=== PATIENT | male | born 1980 | race Caucasian/White ===

== ENCOUNTER 2018-01-03 11:09 | Emergency (ER) | payer BC ==
[~2018-01-03] VITALS: Ht 175.3 cm; Wt 104.3 kg
[2018-01-03 12:35] LABS: AMPHETAMINES SCREEN,URINE NEGATIVE (NEGATIVE); BENZODIAZEPINES SCREEN,URINE NEGATIVE (NEGATIVE); PHENCYCLIDINE SCREEN,URINE NEGATIVE (NEGATIVE)
[2018-01-03] MEDS ORDERED: ASPIRIN 81 MG CHEW TAB PO ONE ×2 (12:45→14:45)
[2018-01-03 12:46] LABS: BILIRUBIN,URINE NEGATIVE (NEGATIVE); CLARITY,URINE CLEAR (CLEAR); COLOR,URINE YELLOW (YELLOW); KETONES,URINE TRACE (NEGATIVE); LEUKOCYTE ESTERASE ,URINE NEGATIVE (NEGATIVE); NITRITE,URINE NEGATIVE (NEGATIVE); PROTEIN,URINE DIPSTICK NEGATIVE (NEGATIVE); URINE UROBILINOGEN 0.2 mg/dL (0.2 - 1)
[2018-01-03 12:46] LABS: BASOPHILS # (AUTO) 0.1 (0.0-0.1); BASOPHILS % 0.6 % (0.0-1.0); EOSINOPHILS # (AUTO) 0.3 (0.0-0.4); EOSINOPHILS % 3.7 % (0.0-6.0); HEMATOCRIT 42.3 % (38.2-49.6); LYMPHOCYTES # (AUTO) 2.3 (1.0-3.2); LYMPHOCYTES % 29.1 % (18.0-39.1); MEAN CORPUSCULAR HEMOGLOBIN 32.3 pg (28-32); MEAN CORPUSCULAR HGB CONC 35.5 g/dL (31-35); MONOCYTES # (AUTO) 0.6 (0.2-0.8); MONOCYTES % 8.1 % (4.4-11.3); NEUTROPHILS # (AUTO) 4.5 (2.1-6.9); NEUTROPHILS % 57.9 % (38.7-80.0); PLATELET COUNT 262 x10e3/uL (140-360); RED BLOOD COUNT 4.65 x10e6/uL (4.3-5.7); RED CELL DISTRIBUTION WIDTH 12.6 % (11.7-14.4)
[2018-01-03 12:49] LABS: INR 1.01; PROTHROMBIN TIME 12.5 seconds (11.9-14.5)
[2018-01-03 12:50] LABS: PARTIAL THROMBOPLASTIN TIME 26.1 seconds (23.8-35.5)
[2018-01-03 12:57] LABS: BACTERIA,URINE RARE /HPF; WBC,URINE (MAN) 0-5 /HPF (0-5)
[2018-01-03 12:58] LABS: ALANINE AMINOTRANSFERASE 55 IU/L (0-55); ALBUMIN 4.7 g/dL (3.5-5.0); ALBUMIN/GLOBULIN RATIO 1.2 (0.8-2.0); ALKALINE PHOSPHATASE 81 IU/L (40-150); BLOOD UREA NITROGEN 11 mg/dL (7-26); BUN/CREATININE RATIO 11 (6-25); CALCIUM 9.8 mg/dL (8.4-10.2); CARBON DIOXIDE 23 mmol/L (22-29); CHLORIDE 104 mmol/L (98-107); CREATINE KINASE 162 IU/L (30-200); CREATININE, SERUM 0.99 mg/dL (0.72-1.25); EST GLOMERULAR FILTRATION RATE > 60 ML/MIN (60-); GLUCOSE 129 mg/dL (74-118); LIPASE 74 U/L (8-78); SODIUM 140 mmol/L (136-145)
--- NOTE | 2018-01-03 13:24 | Diagnostic Imaging Report ---
PROCEDURE: A single AP view of the chest. COMPARISON: None. INDICATIONS: CHEST PAIN TODAY FINDINGS: Lines/tubes: None. Lungs: The lungs are well inflated and clear. There is no evidence of pneumonia or pulmonary edema. Pleura: There is no pleural effusion or pneumothorax. Heart and mediastinum: The heart and the mediastinum are unremarkable. Bones: No acute bony abnormality. IMPRESSION: No acute cardiopulmonary disease. Dictated by: Timo Echols M.D. on 01/03/2018 at 13:27 Electronically approved by: Timo Echols M.D. on 01/03/2018 at 13:27
[2018-01-03] MEDS ORDERED: NITROGLYCERIN 0.4 MG SUBL SL PRN (14:45)
[2018-01-03] MEDS ORDERED: SODIUM CHLORIDE FLUSH 10 ML SYR INJ PRN (14:45)
[2018-01-03] MEDS ORDERED: ATORVASTATIN CA80 MG PO (16:28)
[2018-01-03] MEDS ORDERED: LOSARTAN POTASS25 MG PO (16:28)
[2018-01-03] MEDS ORDERED: BRILINTA90 MG PO (16:28)
[2018-01-03] MEDS ORDERED: LISINOPRIL-HCT1 EACH PO (16:28)
[2018-01-03] MEDS ORDERED: ADULT LOW DOSE81 MG PO (16:28)
[2018-01-03] MEDS ORDERED: PROAIR HFA INH8.5 GM INH (16:28)
[2018-01-03] MEDS ORDERED: SINGULAIR10 MG PEG (16:28)
--- NOTE | 2018-01-03 19:01 | Consultation ---
DATE OF CONSULTATION: January 03, 2018 REASON FOR CONSULTATION: Chest pain. HISTORY OF PRESENT ILLNESS: This is a 37-year-old male with history of PCI LAD in March 2017 in [place], hyperlipidemia, hypertension, asthma, anxiety. The patient presents to [facility] ER with complaints of chest pain, pressure in nature. Cardiology was consulted for evaluation. The patient was seen in the ER, reports chest pain for 3 weeks or so off and on lasting for several hours at a time with occasional shortness of breath and diaphoresis. However, today at work he felt very diaphoretic with his chest pain and, therefore, he came to the ER for further evaluation. Currently, the patient is chest pain free. The patient reports this is not the same type of chest pain he had when he had his heart catheterization, which he describes as pressure radiating down to his bilateral arms with shortness of breath. Heart enzymes negative, less than 0.001 x1 thus far. EKG showing normal sinus rhythm with no ST changes suggestive of acute event. The patient reports that he is compliant with his aspirin, Brilinta and atorvastatin therapy. PAST MEDICAL HISTORY: CAD with PCI of LAD on April 06, 2017 in [place], hypertension, hyperlipidemia, anxiety, asthma and reflux. PAST SURGICAL HISTORY: Tonsillectomy and PCI to LAD. SOCIAL HISTORY: He is single. 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 He denied any tobacco use. He reports social alcohol use twice a week. FAMILY HISTORY: Mother alive, age 50's, reports as healthy. Father alive at age 50, reports CAD, status post PCI. Has one sister reports as healthy. ALLERGIES: PENICILLIN. MEDICATIONS: Aspirin 81 mg once a day, Brilinta 90 mg twice daily, atorvastatin 40 mg once a day, lisinopril/hydrochlorothiazide 20 mg and 12.5 mg once day, half pill, Singulair as needed, Albuterol as needed, Prilosec one tablet daily. REVIEW OF SYSTEMS: GENERAL: Denies any weight changes, fatigue, weakness, fever, chills, night sweats. SKIN: No rashes, no bruises. HEENT: Occasional dizziness, occasional nausea. No vomiting. No visual changes. No tinnitus. No vertigo. No earaches. No epistaxis. No sore throat. No hoarseness. CARDIAC: Positive for chest pain. Denies any shortness of breath. Positive for dyspnea on exertion. Denies any orthopnea, PND or lower extremity edema. RESPIRATORY: Positive for shortness of breath with activities. No wheezing, coughing, hemoptysis. GI: Good appetite. No nausea, no vomiting. Does report indigestion. No diarrhea. Positive for constipation. No hematemesis, melena. GENITOURINARY: Positive for frequency. Denies any urgency, polyuria, dysuria. VASCULAR: Denies any lower extremity edema. No claudication. MUSCULOSKELETAL: Good muscle strength throughout. No joint pains. NEUROLOGIC: No numbness, tingling, tremors, weakness. HEMATOLOGY: No easy bruising. PHYSICAL EXAMINATION VITAL SIGNS: Temperature 98.9, pulse 77, respiratory rate 18, blood pressure 136/83, pulse oximetry 98% on room air. GENERAL: He is awake, alert, oriented and in no acute distress, well developed, reliable informant. SKIN: No rashes, no bruises. HEENT: Normocephalic. Pupils are equal, round and reactive. Extraocular movements intact. Trachea midline. Oral mucosa pink. NECK: No JVD. No carotid bruit. HEART: Regular rate and rhythm. No murmurs and no clicks. PMI 4th intercostal space. LUNGS: Bilaterally clear to auscultation. ABDOMEN: Soft and nontender, nondistended. No organomegaly noted. MUSCULOSKELETAL: Good muscle strength. No lower extremity edema. VASCULAR: There are +2 bilateral radial pulses, and +2 bilateral DP, PT pulses. NEUROLOGIC: Cranial nerves II-XII grossly intact. LABORATORY DATA: Sodium 140, potassium 4.0, BUN 11, creatinine 0.99, troponin less than 0.001. Hemoglobin 15, hematocrit 42, platelets 262. Chest x-ray: No acute cardiopulmonary disease. EKG: Normal sinus rhythm. ASSESSMENT: 1. Chest pain. 2. Coronary artery disease with history of PCI to left anterior descending in March 2017. 3. Hypertension. 4. Hyperlipidemia. 5. Anxiety. 6. Reflux. PLAN: The patient presents with several week history of chest pain pressure, nonradiating, thus far negative enzymes x1. EKG without any acute changes suggesting no acute event. For now, will continue to monitor. Will cycle enzymes. Will restart the patient's aspirin, Brilinta, atorvastatin. Continue his . Will go ahead and get an echo to evaluate heart function. Will plan for stress test tomorrow morning if her enzymes are negative. Thank you very much for this consult. Will continue to monitor the patient and adjust cardiac therapy as course dictates. Dictated by: Rodger Chen NP Seen and evaluated Job#: [id number] MTDD
[2018-01-03] MEDS ORDERED: ATORVASTATIN 40 MG TAB PO SCH (21:00)
[2018-01-03 21:25] LABS: CREATINE KINASE 142 IU/L (30-200)
[2018-01-04 06:28] LABS: CHOL/HDL RATIO 3.9 (3.9-4.7); CHOLESTEROL 132 MD/DL (0-199); CREATINE KINASE 129 IU/L (30-200); HDL CHOLESTEROL 34 MG/DL (40-60); LDL CHOLESTEROL 51 MG/DL (60-130); TRIGLYCERIDES 236 MG/DL (0-149)
[2018-01-04] MEDS ORDERED: PANTOPRAZOLE SOD 40 MG TABEC PO SCH (07:30)
[2018-01-04] MEDS ORDERED: HYDROCHLOROTHIAZIDE 25 MG TAB PO SCH (09:00)
[2018-01-04] MEDS ORDERED: TICAGRELOR 90 MG TABLET PO SCH (09:00)
[2018-01-04] MEDS ORDERED: ASPIRIN 325 MG TAB EC PO SCH (09:00)
[2018-01-04] MEDS ORDERED: LISINOPRIL 10 MG TAB PO SCH (09:00)
--- NOTE | 2018-01-04 12:44 | Cardiology Report ---
DATE OF STUDY: January 04, 2018 NUCLEAR STRESS TEST TITLE OF THE TEST: Cardiac stress test. TECHNICAL DETAILS: The protocol is a [place] with target heart rate at 156 per minute. RESULTS: 1. Patient exercised for a total of 8 minutes 1 second. 2. Heart rate increased from 73 to 169 per minute. 3. Blood pressure increased from 130/80 to 160/80. 4. No chest pain. 5. No EKG changes. IMPRESSION: Negative cardiac stress test. Limitations are explained. Job#: [id number]
[2018-01-05] MEDS ORDERED: ASPIRIN 325 MG TAB EC PO SCH (09:00)
[2018-01-05] MEDS ORDERED: ASPIRIN 81 MG ENTERIC COATED PO SCH (09:00)
== END 2018-01-04 10:20 | disposition home or self-care (01) ==
LOC: ER 11:09 → ERHOLD 15:43 → UNDOADMOB 15:43
DX: R07.89 Other chest pain (principal); I10 Essential (primary) hypertension; Z95.5 Presence of coronary angioplasty implant and graft
CPT/HCPCS: 36415; 71045; 80053; 80061; 80307; 80320; 81001; 82550; 82553; 83690; 84443; 84484; 85025; 85610; 85730; 93005; 93017; 93306; 99284